=== PATIENT | male | born 1945 | race Two or more races ===

== ENCOUNTER 2020-09-11 08:01 | Emergency (ER) | payer MEDICARE, MEDICAID ==
[~2020-09-11] VITALS: Ht 172.7 cm; Wt 72.6 kg
[~2020-09-11 08:01] MED LIST: ALBUTEROL SULF8.5 GM INH; AZITHROMYCIN250 MG ORAL; GUAIFENESIN-CO118 M1 ORAL; MULTIVITAMINS1 EAC2 ORAL
[2020-09-11] MEDS ORDERED: ACETAMINOPHEN500 M5 ORAL (08:14)
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
--- NOTE | 2020-09-11 08:49 | NUR ---
ED Nurse Note: xray at bedside.
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
[2020-09-11] MEDS ORDERED: ACETAMINOPHEN-1 EAC1 ORAL (09:43)
[2020-09-11 09:53] VITALS: BP 145/76
--- NOTE | 2020-09-11 09:53 | NUR ---
ED Nurse Note: Pt cleared by ERMD for discharge. DC instructions/prescription was given and explained to pt and verbalized understanding of teachings. All medical deviecs such as ID band removed. Pt is AAO x4, ambulatory and left with all personal belongings. Taxi voucher provided.
--- NOTE | 2020-09-11 17:48 | Diagnostic Imaging Report ---
Indication: Right foot pain Technique: 3 views right foot Comparison: none Findings: There is a comminuted multipartite fracture of the fifth metatarsal. There is also a minimally displaced fracture the base of the fourth metatarsal. There is unusual longitudinal fracture through the greater tuberosity of the calcaneus. No dislocations. Joint spaces are preserved. Impression: Positive for fractures of the fourth and fifth metatarsals. This is noted by the ER physician in the electronic medical record Positive for calcaneal fracture. This was reported to Dr. Hurt at the time of interpretation
== END 2020-09-11 09:53 | disposition home or self-care (01) ==
LOC: EDUNIT# 08:01 → EDBD 08:01 → EMR 08:40
DX: S92.341D Displaced fracture of fourth metatarsal bone, right foot, subsequent encounter for fracture with routine healing (principal); S92.351D Displaced fracture of fifth metatarsal bone, right foot, subsequent encounter for fracture with routine healing; S92.002D Unspecified fracture of left calcaneus, subsequent encounter for fracture with routine healing; V03.90XD Pedestrian on foot injured in collision with car, pick-up truck or van, unspecified whether traffic or nontraffic accident, subsequent encounter
CPT/HCPCS: 29515; 99283